=== PATIENT | male | born 1975 | race Two or more races ===

== ENCOUNTER 2025-04-06 07:00 | Day surgery (SDC) | payer OTHER ==
[2025-03-30 09:57] VITALS: BP 120/77
[~2025-04-06] VITALS: Ht 165.1 cm; Wt 83.5 kg
[2025-04-06] MEDS ORDERED: METRONIDAZOLE/SODIUM CHLORIDE 500 MG/100 ML PIGGYBACK IV ONE (08:08)
[2025-04-06] MEDS ORDERED: CEFTRIAXONE SODIUM 2,000 MG VIAL ONE (08:08)
[2025-04-06] MEDS ORDERED: POVIDONE-IODINE 118 ML BOTT TOP ONE (10:15)
[2025-04-06] MEDS ORDERED: BUPIVACAINE HCL/MPF 0.5% 30ML VIAL ONE (10:15)
[2025-04-06] MEDS ORDERED: DIBUCAINE 30 GM TUBE ONE (10:15)
[2025-04-06] MEDS ORDERED: LIDOCAINE HCL 1%/EPINEPHRINE 20ML VIAL IJ ONE (10:16)
[2025-04-06] MEDS ORDERED: HEMOSTATIC MATRIX 1 KIT KIT TOP ONE (10:16)
== END 2025-04-06 17:00 | disposition home or self-care (01) ==
LOC: CIR.AMB 07:00
PROVIDERS: ATTEND Colon & Rectal Surgery
DX: K62.4 Stenosis of anus and rectum (principal)